=== PATIENT | female | born 2005 | race Two or more races ===

== ENCOUNTER 2024-08-14 11:41 | Emergency (ER) | payer MEDICAID, SELFPAY ==
[2024-08-14 11:50] VITALS: BP 153/95; PULSE 95; RESP 16; TEMP 36.9; O2SAT 97; BMI 40.1
--- NOTE | 2024-08-14 12:04 | XR_ITS ---
Examination: Abdomen sonogram, Limited Date and time of exam: August 14, 2024 1245 hours INDICATIONS: Epigastric pain and vomiting beginning today Technique: Real-time olivarez scale transabdominal sonographic images of the upper abdomen obtained. Findings: Small gallstones Gallbladder wall 0.3 cm Common bile duct 0.3 cm Pancreatic head 2.4 cm Liver 13.3 cm fatty infiltration Normal hepatopedal portal venous flow IVC is obscured by bowel gas IMPRESSION: Cholelithiasis, negative for cholecystitis Normal common bile duct
--- NOTE | 2024-08-14 12:05 | EDNOTE_ITS ---
ED Abdominal Pain RME/HPI General Chief Complaint: Nausea/Vomiting/Diarrhea Stated complaint: Vomiting since 0200, abdominal pain Time seen by provider: 08/14/24 11:45 Arrival date/time: 08/14/24 11:41 This is a case of 18-year-old female with no medical history came in in the emergency room due to abdominal pain mostly on the upper abdominal and epigastric area today associated with nausea vomiting no constipation no diarrhea no fever no chills no blood in stool Source: patient Limitations: no limitations Related Data Previous Rx's ?Medication ?Instructions ?Recorded famotidine 20 mg tablet 20 mg PO BID 30 days #60 tab s 08/14/24 nitrofurantoin 100 mg PO BID 10 days #20 ca ps 08/14/24 monohydrate/macrocrystals 100 mg capsule (Macrobid) ondansetron 4 mg disintegrating 4 mg PO Q8H PRN nausea and 08/14/24 tablet vomiting #10 tabs tramadol 50 mg tablet 50 mg PO Q6H PRN pain #10 ta bs 08/14/24 Allergies Allergy/AdvReac Type Severity Reaction Status Date / Time No Known Drug Allergies Allergy Verified 08/14/24 11:45 Review of Systems Review of Systems Systems Reviewed: All systems reviewed, normal except as documented Constitutional Constitutional: Reports system reviewed and no additional complaints, except as documented, Reports as per HPI, Denies chills and Denies fever(s) ENT Ears, Nose, Mouth, and Throat: Denies dysphagia and Denies odynophagia Cardiovascular Cardiovascular: Reports system reviewed and no additional complaints, except as documented, Reports as per HPI, Denies chest pain and Denies dyspnea Respiratory Respiratory: Reports system reviewed and no additional complaints, except as documented, Reports as per HPI and Denies dyspnea Gastrointestinal Gastrointestinal: Reports system reviewed and no additional complaints, except as documented, Reports as per HPI, Reports abdominal pain, Denies belching, Denies bloating, Denies change in bowel habits, Denies change in stool character, Denies coffee ground emesis, Denies constipation, Denies cramping, Denies diarrhea, Denies dyspepsia, Denies dysphagia, Denies early satiety, Denies excessive flatus, Denies fecal incontinence, Denies heartburn, Denies hematemesis, Denies hematochezia, Denies loose stools, Denies melena, Reports nausea, Denies odynophagia, Denies tenesmus and Reports vomiting Musculoskeletal Musculoskeletal: Reports system reviewed and no additional complaints, except as documented and Reports as per HPI Neurologic Neurologic: Reports system reviewed and no additional complaints, except as documented and Reports as per HPI Past Medical History Social History SMOKING STATUS: Never smoker ED Exam General Limitations: Present no limitations General appearance: Present alert, in no apparent distress and other (Alert oriented x 4 no focal deficit well-hydrated well-nourished not in distress nontoxic looking) Head Head exam: Present atraumatic Eye Eye exam: Present normal appearance, PERRL and EOMI ENT ENT exam: Present normal exam, normal oropharynx and mucous membranes moist Neck Neck exam: Present normal inspection, full ROM and trachea midline; Absent tenderness, meningismus or lymphadenopathy Chest Chest inspection: Present normal inspection and symmetric chest wall rise; Absent tenderness Respiratory Respiratory exam: Present normal lung sounds bilaterally; Absent respiratory distress, wheezes, stridor, accessory muscle use or prolonged expiratory phase Cardiovascular Cardiovascular exam: Present regular rate, normal rhythm and normal heart sounds; Absent bradycardia, tachycardia, irregular rhythm, systolic murmur or diastolic murmur Abdominal Exam Abdominal exam: Present soft, tenderness (Mild tenderness on the right upper quadrant and epigastric area no CVA tenderness) and normal bowel sounds; Absent distention, guarding, rebound, rigidity, diminished bowel sounds, hyperactive bowel sounds, psoas sign, obturator sign, Zepeda's sign, Rovsing's sign or tenderness at McBurney's Point Abdominal tenderness: Present RUQ, epigastrium and mild Extremities Exam Extremities exam: Present normal inspection and full ROM Back Exam Back exam: Present normal inspection and full ROM Neurological Exam Neurological exam: Present alert, oriented X3, CN II-XII intact, normal gait and reflexes normal; Absent motor sensory deficit Psychiatric Psychiatric exam: Present normal affect and normal mood Skin Skin exam: Present warm, dry, intact and normal color Course Quality Measures none Orders Category Date Time Status US gall bladder Stat Exams 08/14/24 12:04 Completed CBC Stat Lab 08/14/24 12:09 Completed Comprehensive Metabolic Panel Stat Lab 08/14/24 12:09 Completed HCG Qualitative,Urine Stat Lab 08/14/24 13:17 Completed Lipase Stat Lab 08/14/24 12:09 Completed Urinalysis Stat Lab 08/14/24 13:17 Completed Famotidine [Pepcid] Med 08/14/24 12:04 Discontinued 40 mg PO X1 ONE HYDROcodone*/APAP 5/325 [Plains 5/325] Med 08/14/24 13:54 Discontinued 1 tab PO X1 ONE Lidocaine 2% Viscous [Xylocaine 2% Viscous] Med 08/14/24 12:04 Discontinued 15 ml PO X1 ONE Ondansetron Odt [Zofran Odt] Med 08/14/24 12:04 Discontinued 4 mg PO X1 ONE mg Hyd/Al Hyd/Vilma Susp [Maalox Susp] Med 08/14/24 12:04 Discontinued 30 ml PO X1 ONE Vital Signs Vital signs: Vital Signs Temperature 98.4 F 08/14/24 11:50 Pulse Rate 95 08/14/24 11:50 Respiratory Rate 16 08/14/24 11:50 Blood Pressure 153/95 H 08/14/24 11:50 Pulse Oximetry (%) 97 08/14/24 11:50 Oxygen Delivery Method Room Air 08/14/24 11:50 Patient is afebrile not tachycardic not tachypneic BP stable not hypoxic oxygen saturation is 97 in room air Abdominal Pain MDM MDM Narrative MDM Narrative:: This is a case of 18-year-old female with no medical history came in in the emergency room due to abdominal pain mostly on the upper abdominal and epigastric area today associated with nausea vomiting no constipation no diarrhea no fever no chills no blood in stool patient is awake alert oriented not in distress nontoxic looking well-hydrated well-nourished lungs sound is clear heart normal rate regular rhythm no murmur abdominal exam is benign nonsurgical no guarding no rebound no rigidity mild tenderness on the epigastric area and right upper quadrant negative psoas negative straight or negative Rovsing's negative Bharat's negative Zepeda sign negative CVA tenderness blood test showed leukocytosis 12,000 no anemia platelets normal kidney liver function is normal no electrolyte imbalance lipase is normal urinalysis showed WBC in the urine suggestive of urinary tract infection ultrasound of the gallbladder pos itive cholelithiasis no cholecystitis patient was given Zofran and GI cocktail which patient condition markedly improved proved at the time of exam no signs and symptoms sepsis or dehydration patient was treated as gastritis initially patient will follow-up with PCP to be referred to general surgeon for cholelithiasis and GI specialist for gastritis and cholelithiasis modified diet keep hydrated worsening symptoms or any emergent concern she was advised to return the emergency room immediately or call 911 Patient was discharged with comfortable condition walking with stable gait. Patient verbalized no further complains explained diagnosis and answered patient question. Patient is comfortable with the proposed management plan including the need to follow up with his/her primary care physician and any specialist if applicable Discussed patient for any urgent condition or worsening sx, He/She needed to go to emergency room immediately or call 911. Patient acknowledge the responsibility to follow up as instructed and to monitor her/his symptoms. For any persistence of the symptoms for more than 3-5 days return precaution advised. Discussed the result of the test and was given printed discharge instruction Patient data External records reviewed:: [facility] previous records Clinical information provided by:: patient Social determinants that could affect healthcare access:: none Patient has the following chronic illnesses:: None How is presenting disease/condition affected by chronic disease/condition?: no chronic disease Evaluation data The following diagnostics were reviewed and interpreted by me:: lab results and radiology exam(s) Lab and/or radiology exams considered but not ordered:: Reviewed Interpretation Summary: Reviewed Medications / Prescriptions Medications or Prescriptions considered but not ordered:: Given Medication administrations:: Medication Administration History Discontinued Medications Hydrocodone Bitart/Acetaminophen (Hydrocodone/Apap 5/325 Tablet) 1 tab PO X1 ONE Stop: 08/14/24 13:55 Last Admin: 08/14/24 14:01 Dose: Not Given Documented By: VIOLET Non-Admin Reason: Patient Refused Al Hydrox/Mg Hydrox/Simethicone (Mg Hyd/Al Hyd/Vilma (Maalox Reg) Susp 30 Ml Udc) 30 ml PO X1 ONE Stop: 08/14/24 12:05 Last Admin: 08/14/24 12:39 Dose: 30 ml Documented By: VIOLET Famotidine (Famotidine 20 Mg Tablet) 40 mg PO X1 ONE Stop: 08/14/24 12:05 Last Admin: 08/14/24 12:39 Dose: 40 mg Documented By: VIOLET Lidocaine HCl (Lidocaine Viscous 2% 15 Ml Udc) 15 ml PO X1 ONE Stop: 08/14/24 12:05 Last Admin: 08/14/24 12:40 Dose: 15 ml Documented By: VIOLET Ondansetron HCl (Ondansetron Odt 4 Mg Tabrap) 4 mg PO X1 ONE; Protocol Stop: 08/14/24 12:05 Last Admin: 08/14/24 12:38 Dose: 4 mg Documented By: MF Given Consultations Consultation(s) initiated? (list below): No Diagnosis Differential diagnosis abdominal pain: abdominal pain and other (Urinary tract infection cholelithiasis gastritis) Most likely diagnosis given after review of the tests above:: Gastritis cholelithiasis urinary tract infection Admission Indicated Admission indicated?: not indicated Explain why admission is indicated or not indicated:: Not indicated Admission Request Was there a request for admission?: No Admission Attestation Admission request attestation: Not indicated Disposition Plan Disposition Plan: Discharge Discharge Attestation Discharge Attestation: The patient and all family members were given an opportunity to ask questions and understood the discharge instructions. Discharge instructions specifically effects, indications for sooner follow up or return to the emergency department, and the expected course of current diagnosis. Patient condition: Stable Discharge Plan Plan Patient Disposition: HOME (Self Care) Patient condition on transfer: Stable Prescriptions/Referrals Prescriptions/Med Rec: New nitrofurantoin monohyd/m-cryst [Macrobid] 100 mg capsule 100 mg PO BID 10 Days Qty: 20 0RF Rx Instructions: must administer with a meal/food tramadol 50 mg tablet 50 mg PO Q6H MDD max 4 tabs per day PRN (Reason: pain) Qty: 10 0RF ondansetron 4 mg tablet,disintegrating 4 mg PO Q8H PRN (Reason: nausea and vomiting) Qty: 10 0RF famotidine 20 mg tablet 20 mg PO BID 30 Days Qty: 60 0RF Referrals: Tennille Harley FNP-C [Primary Care Provider] - In 1 week Problem List Clinical Impression: Abdominal pain, Cholelithiasis, Gastritis, Urinary tract infection Patient/Caregiver Discharge Instructions Education Materials: Abdominal Pain, Treating Gallstones, Understanding Urinary Tract ..., ED Gastritis (Adult) Additional Instructions: Follow-up with your primary care physician in 2 days for reevaluation and to be referred to order dispatcher chief for further evaluation and treatment of cholelithiasis and gastritis and to be referred to a general surgeon for cholelithiasis worsening symptoms recurrence of the symptoms persistence of the symptoms or any emergent concern call 911 or go to the nearest emergency room take your medication as directed avoid skipping of meals avoid spicy food avoid fatty fried high cholesterol foods avoid soda coffee or alcohol take your medication as directed finish the course of antibiotic increase water intake keep hydrated Pedialyte Gatorade for hydration and every bouts of vomiting Print Language: Tamazight Stand Alone Forms: Fidelia Award Info., Patient Portal Info Letter PA/JOINERY SETTER OUT Supervising Physician PA/JOINERY SETTER OUT Supervising Physician: dr ramesh
[2024-08-14 12:21] LABS: Basophils # (Auto) 0.0 Thou/mm3 (0.0-0.2); Basophils % (Auto) 0 % (0-2.5); Eosinophils # (Auto) 0.1 Thou/mm3 (0.0-0.5); Eosinophils % (Auto) 1 % (0-10); Hematocrit 39.9 % (36.0-46.0); Hemoglobin 15.0 g/dL (12.0-16.0); Immature Granulocytes Auto 0.04 Thou/mm3 (0.00-0.00); Lymphocytes # (Auto) 2.2 Thou/mm3 (1.0-4.8); Lymphocytes % (Auto) 19 % (10-50); Mean Corpuscular HGB Conc 37.6 g/dl (31.0-37.0); Mean Corpuscular Hemoglobin 30.7 pg (25.0-35.0); Mean Corpuscular Volume 82 fL (80-100); Monocytes # (Auto) 0.6 Thou/mm3 (0.0-0.8); Monocytes % (Auto) 5 % (0-12); Neutrophils # (Auto) 9.0 Thou/mm3 (1.8-7.7); Neutrophils % (Auto) 75 % (37-80); Nucleated Red Blood Cell # 0.00 Thou/mm3 (0.00-0.00); Nucleated Red Blood Cell % 0 /100 WBC (0); Platelet Count 329 Thou/mm3 (140-440); RDW Standard Deviation 37.0 fL (36.4-46.3); Red Blood Count 4.88 Miln/mm3 (4.00-5.20); White Blood Count 12.0 Thou/mm3 (4.5-11.0)
[2024-08-14 12:38] LABS: Alanine Aminotransferase 52 U/L (10-49); Albumin, Serum 4.9 gm/dL (3.5-5.0); Albumin/Globulin Ratio 1.4 (1.2-2.2); Alkaline Phosphatase 104 U/L (46-116); Anion Gap 8 (7-16); Aspartate Amino Transferase 28 U/L (0-34); BUN/Creatinine Ratio 11 Ratio (12-20); Bilirubin,Total 0.6 mg/dL (0.3-1.2); Blood Urea Nitrogen 9 mg/dL (9-23); Calcium 10.1 mg/dL (8.3-10.6); Calcium (Corrected) 10.1 mg/dL (8.5-10.1); Carbon Dioxide 27.4 mMol/L (20.0-31.0); Chloride 103 mMol/L (98-107); Creatinine (Component) 0.8 mg/dL (0.6-1.3); Estimated Creatinine Clearance 157.7 mL/min (>60); Globulin 3.6 gm/dL (2.3-3.5); Glucose 120 mg/dL (74-106); Lipase 31 U/L (12-53); Osmolality,Calculated 275 (275-295); Potassium 3.9 mMol/L (3.4-5.1); Sodium 138 mMol/L (136-145); Total Protein 8.5 gm/dL (5.7-8.2); eGFR > 60 See Note
[2024-08-14] MEDS: ONDANSETRON ODT 4 MG TABRAP PO (12:38)
[2024-08-14] MEDS: MG HYD/AL HYD/SIME (Maalox Reg) SUSP 30 ML UDC PO (12:39)
[2024-08-14] MEDS: FAMOTIDINE 20 MG TABLET 40 MG PO (12:39)
[2024-08-14] MEDS: LIDOCAINE VISCOUS 2% 15 ML UDC PO (12:40)
[2024-08-14 13:23] LABS: Collection Type, Urine Clean Catch
[2024-08-14 13:35] LABS: Bilirubin,Urine Negative (Negative); Blood,Urine Negative (Negative); Clarity,Urine Clear (Clear/Hazy); Color,Urine Lt-Yellow (Lt Yel-Yel); Glucose, Urine Negative (Negative); Ketones,Urine Negative (Negative); Leukocyte Esterase,Urine Positive (Negative); Nitrite,Urine Negative (Negative); PH,Urine 7.0 (5.0-7.0); Protein,Urine Negative (Neg - Trace); RBC,Urine 1 /hpf (0-3); Specific Gravity,Urine 1.017 (1.001-1.035); Squamous Epithelial Cell,Urine 4 /hpf (0-5); Urobilinogen,Urine Negative mg/dL (0.0-1.0); WBC,Urine 1 /hpf (0-5)
[2024-08-14 13:46] LABS: HCG Qualitative,Urine Negative
[2024-08-14 14:39] VITALS: BP 135/81; PULSE 91; RESP 18; TEMP 36.7; O2SAT 97
== END 2024-08-14 15:59 | disposition home or self-care (01) ==
PROVIDERS: Nurse Practitioner Family; Emergency Provider Emergency Medicine; PCP Nurse Practitioner Family
DX: K29.70 Gastritis, unspecified, without bleeding (principal); K80.20 Calculus of gallbladder without cholecystitis without obstruction; N39.0 Urinary tract infection, site not specified
CPT/HCPCS: 36415; 76705; 80053; 81001; 81025; 83690; 85025; 99283; J3490; Q0162; A9270

== ENCOUNTER 2024-08-26 11:45 | Outpatient (AMB) | payer MEDICAID, SELFPAY ==
--- NOTE | 2024-08-26 08:18 | GSCOFFNT_ITS ---
Vital [facility] - [facility] 08/26/24 11:52 Height 1.75 m Height Method Measured Weight 123.462 kg Weight Measurement Method Standing Scale BMI 40.1 BP 120/84 Blood Pressure Source Automatic Cuff Blood Pressure Location Left Upper Arm Position Sitting Respiration 16 Pulse 90 Pulse Source Monitor Temp 98.5 F Temp Source Temporal Artery Scan Pulse Oximetry (%) 97 Oxygen Delivery Method Room Air Med/Allergies Allergies & Medications Allergies No Known Drug Allergies Allergy (Verified 08/26/24 11:53) Medication Reconciliation famotidine 20 mg tablet 20 mg PO BID 30 days #60 tabs 08/14/24 [Rx Confirmed 08/26/24] ondansetron 4 mg disintegrating tablet 4 mg PO Q8H PRN nausea and vomiting #10 tabs 08/14/24 [Rx Confirmed 08/26/24] tramadol 50 mg tablet 50 mg PO Q6H PRN pain #10 tabs 08/14/24 [Rx Confirmed 08/26/24] MA Intake Visit Data Collection New Patient or Established: Established Patient (seen at [facility] within 3 years) Seen by Clinical Staff ONLY (RN/MA): No Pain Present Currently: No Pain scale:: 0 Pain Scale Used: Cervantes-Fontenot/Numerical Special Needs Babysitter Required: No PCP or OBGYN visit in last 3 months: Yes Hx Now: No Do You Feel Safe at Home: Yes Authorities Contacted: N/A Smoking Status Smoking Status: Never smoker Immunization / Flu Flu Vaccine in the Last 12 Months: No Flu Vaccine Exclusion Criteria: No Exclusion Criteria Past Medical History Social History SMOKING STATUS: Smoking status: Never smoker HPI HPI Narrative 18F referred for symptomatic cholelithiasis. Pt reports she had an episode of severe pain a few weeks ago, it started suddenly at 1am and was 10/10 in the RUQ, not related to eating and without any associated symptoms. Pt does believe she has had similar episodes of pain in the past that self-resolved. She went to ER at the time and was advised she had cholelithiasis but no signs of cho lecystitis PMH: None PSHx: None Meds: Was given tramadol for pain in ER but felt it caused dizziness Allergies: NKDA Social hx: Nonsmoker ROS Review of Systems Systems Reviewed: All systems reviewed, normal except as documented Objective/Exam General General Appearance: alert, cooperative and well groomed Resp Respiratory exam: Absent respiratory distress Abdominal Abdominal exam: Present soft; Absent distention or tenderness Results US reviewed Assessment & Plan Diagnosis / Problem List (1) Symptomatic cholelithiasis: Status: Acute Assessment & Plan: 18F presenting with signs and symptoms of symptomatic cholelithiasis. I explained that surgery is recommended due to the 30% chance of having recurrent symptoms, and enumerated risks including need for conversion to open, bleeding, infection, injury to nearby structures requiring further procedures or major biliary reconstruction which would require transfer to another hospital, as well as postoperative hernia and diarrhea. All questions were answered and pt is agreeable to proceeding Plan: Laparosocpic cholecystectomy, possible open Wed 09/04 Office Procedures GNS Level of Care Nursing/Assessment Patient Status: Established Patient Nursing Assessment/Reassesment: Medication Reconciliation, Update PMH in EMR and Vital Signs Coordination of Care: Complex Care and Chronic Disease 1-5, Consent,records obtained, informed consent, Education Simp Pt/Fam, Results/Orders obtained and Staff clarify orders Established Patient Charge Established Patient Point Assignment: 90 Established Patient Point Charge: EP Level 3 (80-115) Patient Portal Questionaires Social History Tobacco History Smoking Status: Never smoker Domestic Abuse History Do You Feel Safe at Home: Yes Review of Systems Report any current symptoms Only answer those that you have currently: Past Medical History Past Medical History Have you ever been diagnosed with any of the following:
[2024-08-26 11:52] VITALS: BP 120/84; PULSE 90; RESP 16; TEMP 36.9; O2SAT 97; BMI 40.1
== END 2024-08-26 12:02 | disposition home or self-care (01) ==
LOC: HODSRG 11:45
PROVIDERS: PCP Nurse Practitioner Family; Referring Provider Nurse Practitioner Family; Supervising Provider Surgery; Visit Provider Surgery
DX: K80.20 Calculus of gallbladder without cholecystitis without obstruction (principal)
CPT/HCPCS: 99213; G0463

== ENCOUNTER 2024-09-09 13:38 | Outpatient (AMB) | payer MEDICAID, SELFPAY ==
[2024-09-09 13:50] VITALS: BP 114/78; PULSE 87; RESP 16; TEMP 36.8; O2SAT 98; BMI 40.1
--- NOTE | 2024-09-09 13:50 | PD.GSCLVISIT ---
[facility] - [facility] 09/09/24 13:50 Height 1.75 m Height Method Measured Weight 123.037 kg Weight Measurement Method Standing Scale BMI 40.1 BP 114/78 Blood Pressure Source Automatic Cuff Blood Pressure Location Left Upper Arm Position Sitting Respiration 16 Pulse 87 Pulse Source Monitor Temp 98.3 F Temp Source Temporal Artery Scan Pulse Oximetry (%) 98 Oxygen Delivery Method Room Air Med/Allergies Allergies & Medications Allergies No Known Drug Allergies Allergy (Verified 09/09/24 13:51) Medication Reconciliation famotidine 20 mg tablet 20 mg PO BID 30 days #60 tabs 08/14/24 [Rx Confirmed 09/09/24] ondansetron 4 mg disintegrating tablet 4 mg PO Q8H PRN nausea and vomiting #10 tabs 08/14/24 [Rx Confirmed 09/09/24] tramadol 50 mg tablet 50 mg PO Q6H PRN pain #10 tabs 08/14/24 [Rx Confirmed 09/09/24] MA Intake Visit Data Collection New Patient or Established: Established Patient (seen at [facility] within 3 years) Seen by Clinical Staff ONLY (RN/MA): No Pain Present Currently: Yes Pain Location: Abdomen Pain scale:: 3 Pain Scale Used: Cervantes-Fontenot/Numerical Flooring Salesperson Required: No PCP or OBGYN visit in last 3 months: Yes Hx Now: No Do You Feel Safe at Home: Yes Authorities Contacted: N/A Smoking Status Smoking Status: Never smoker Immunization / Flu Flu Vaccine in the Last 12 Months: No Flu Vaccine Exclusion Criteria: No Exclusion Criteria Past Medical History Social History SMOKING STATUS: Smoking status: Never smoker HPI HPI Narrative 18F here for follow up of cholelithiasis. I had hoped to schedule her surgery for last week but pt states she has had insurance issues related to moving and she spoke to her carrier today who said the necessary changes should be made within 7 days. Pt states she continues to have episodes of RUQ pain but she is managing it well with tylenol ROS Review of Systems Systems Reviewed: All systems reviewed, normal except as documented Objective/Exam General General Appearance: alert, cooperative and well groomed Resp Respiratory exam: Absent respiratory distress Assessment & Plan Diagnosis / Problem List (1) Symptomatic cholelithiasis: Status: Acute Assessment & Plan: 18F presenting with signs and symptoms of symptomatic cholelithiasis. I explained that surgery is recommended due to the 30% chance of having recurrent symptoms, and enumerated risks including need for conversion to open, bleeding, infection, injury to nearby structures requiring further procedures or major biliary reconstruction which would require transfer to another hospital, as well as postoperative hernia and diarrhea. All questions were answered and pt is agreeable to proceeding Plan: Laparoscopic cholecystectomy, possible open Wed 09/25 Office Procedures GNS Level of Care Nursing/Assessment Patient Status: Established Patient Nursing Assessment/Reassesment: Medication Reconciliation, Update PMH in EMR and Vital Signs Coordination of Care: Complex Care and Chronic Disease 1-5, Consent,records obtained, informed consent, Education Simp Pt/Fam, Results/Orders obtained and Staff clarify orders Established Patient Charge Established Patient Point Assignment: 90 Established Patient Point Charge: EP Level 3 (80-115) Patient Portal Questionaires Social History Tobacco History Smoking Status: Never smoker Domestic Abuse History Do You Feel Safe at Home: Yes Review of Systems Report any current symptoms Only answer those that you have currently: Past Medical History Past Medical History Have you ever been diagnosed with any of the following:
== END 2024-09-09 13:59 | disposition home or self-care (01) ==
LOC: HODSRG 13:38
PROVIDERS: PCP Nurse Practitioner Family; Referring Provider Nurse Practitioner Family; Supervising Provider Surgery; Visit Provider Surgery
DX: K80.20 Calculus of gallbladder without cholecystitis without obstruction (principal)
CPT/HCPCS: 99213; G0463

== ENCOUNTER 2024-09-25 08:10 | Day surgery (SDC) | payer MEDICAID, SELFPAY ==
[2024-09-23 12:24] VITALS: BMI 43.0
[2024-09-23 13:20] LABS: Basophils # (Auto) 0.0 Thou/mm3 (0.0-0.2); Basophils % (Auto) 1 % (0-2.5); Eosinophils # (Auto) 0.2 Thou/mm3 (0.0-0.5); Eosinophils % (Auto) 2 % (0-10); Hematocrit 37.1 % (36.0-46.0); Hemoglobin 13.2 g/dL (12.0-16.0); Immature Granulocytes Auto 0.03 Thou/mm3 (0.00-0.00); Lymphocytes # (Auto) 3.2 Thou/mm3 (1.0-4.8); Lymphocytes % (Auto) 39 % (10-50); Mean Corpuscular HGB Conc 35.6 g/dl (31.0-37.0); Mean Corpuscular Hemoglobin 30.6 pg (25.0-35.0); Mean Corpuscular Volume 86 fL (80-100); Monocytes # (Auto) 0.5 Thou/mm3 (0.0-0.8); Monocytes % (Auto) 6 % (0-12); Neutrophils # (Auto) 4.4 Thou/mm3 (1.8-7.7); Neutrophils % (Auto) 53 % (37-80); Nucleated Red Blood Cell # 0.00 Thou/mm3 (0.00-0.00); Nucleated Red Blood Cell % 0 /100 WBC (0); Platelet Count 300 Thou/mm3 (140-440); RDW Standard Deviation 39.1 fL (36.4-46.3); Red Blood Count 4.32 Miln/mm3 (4.00-5.20); White Blood Count 8.3 Thou/mm3 (3.6-11.0)
[2024-09-23 13:27] LABS: INR 1.0 (0.9-1.3); Partial Thromboplastin Time 26.4 Seconds (22.0-36.0); Prothrombin Time 10.9 Seconds (9.0-12.2)
[2024-09-23 13:28] LABS: Anion Gap 8 (7-16); BUN/Creatinine Ratio 16 Ratio (12-20); Blood Urea Nitrogen 11 mg/dL (9-23); Calcium 9.7 mg/dL (8.3-10.6); Carbon Dioxide 25.8 mMol/L (20.0-31.0); Chloride 109 mMol/L (98-107); Creatinine (Component) 0.7 mg/dL (0.6-1.3); Estimated Creatinine Clearance 174.2 mL/min (>60); Glucose 107 mg/dL (74-106); Osmolality,Calculated 284 (275-295); Potassium 3.6 mMol/L (3.4-5.1); Sodium 143 mMol/L (136-145); eGFR > 60 See Note
[2024-09-23 13:48] LABS: HCG,Qualitative Serum Negative
[2024-09-25] VITALS (11 sets, daily range): BP systolic 125–153; BP diastolic 79–101; PULSE 74–91; RESP 14–20; TEMP 36.3–36.4; O2SAT 97–100; BMI 42.5
--- NOTE | 2024-09-25 08:25 | CHAP ---
Prayed with patient before her procedure.
--- NOTE | 2024-09-25 11:24 | ESOP_ITS ---
Date of Procedure 09/25/24 Pre Op Diagnosis Symptomatic cholelithiasis Post Op Diagnosis Same Procedure Laparoscopic cholecystectomy Findings Normal-appearing gallbladder Procedure Description After discussion of risks and benefits, patient was brought to the operating room, SCDs were placed and general anesthesia was induced. She received preoperative antibiotics and was prepped and draped in the usual sterile fashion. After timeout a supraumbilical incision was made with a #15 blade and the skin was elevated with towel clamps. A Veress needle was placed through the incision, however it did not reach the peritoneum. I instead use a long Veress needle but again it did not reach the peritoneum so I instead made an incision in the left upper quadrant approximately 2 fingerbreadths inferior to the costal margin. Again the skin was elevated with towel clamps and the long Veress needle was placed through this new incision. Proper positioning was confirmed with a drop test and the abdomen was then insufflated to 15 mmHg at which point the Veress needle was exchanged for a 5 mm camera using a Visiport technique. There were no signs of injury from the point of entry. Four additional ports were placed under direct vision, one 5mm at the supraumbilical region, one 12 mm at the epigastrium, one 5 mm right subcostal and one 5 mm right anterior axillary line. Patient was placed in reverse Trendelenburg. The fundus of the gallbladder was grasped and retracted cephalad and the infundibulum was grasped and retracted laterally. The critical view of safety was achieved using blunt dissection and the cystic duct and cystic artery were clipped and transected in the usual fashion. The gallbladder was removed from the gallbladder bed using electrocautery. Hemostasis of the gallbladder bed was achieved with electrocautery and reinforced with Surgicel powder. The specimen was removed in an Endo Catch bag via the epigastric port and the epigastric fascia was closed with a 0-Vicryl suture using a Vinayak-Paige. Pneumoperitoneum was released and ports were removed under direct vision. Incisions were irrigated and i nfiltrated with half percent Marcaine for a total of 30 cc. Incisions were closed with 4 Monocryl and reinforced with Dermabond. Patient was extubated and brought to PACU in stable condition Pathology / specimen Other (Gallbladder) Estimated Blood Loss 25 Surgeon Patsy Jeronimo MD Surgical Staff Operation Date: 09/25/24 10:45 Case Staff ASSISTANT FIELD HOCKEY COACH: Tommy Anderson custodial laborer: Rosa Carroll
--- NOTE | 2024-09-25 11:26 | ESDS_ITS ---
Planned Discharge Date 09/25/24 DS: Providers Provider Primary care physician: Physician No Primary/Family Attending Provider on Admission: Patsy Jeronimo MD Attending Provider on DC: Patsy Jeronimo MD Discharging Provider: Patsy Jeronimo MD Diagnosis Discharge Diagnosis (1) Symptomatic cholelithiasis: Status: Acute Problem List Completed Was Problem List Reviewed/Reconciled?: Yes Exam Vital Signs Temp Pulse Resp BP Pulse Ox 97.3 F 79 18 125/83 98 09/25/24 08:39 09/25/24 08:39 09/25/24 08:39 09/25/24 08:39 09/25/24 08:39 Discharge Plan Plan Patient Disposition: HOME (Self Care) Prescriptions/Referrals Prescriptions/Med Rec: New oxycodone-acetaminophen [Percocet] 5-325 mg tablet 1 tab PO Q4H MDD 6 tabs PRN (Reason: pain) Qty: 10 0RF Rx Instructions: Take 1 tablet as needed every 4-6 hours for moderate to severe pain No Action famotidine 20 mg tablet 20 mg PO BID Patient Comments: TAKE 1 TABLET BY MOUTH TWICE DAILY Referrals: Patsy Jeronimo MD [Physician] - (You will receive a phone call to confirm a follow-up appointment with me in 2 weeks) No Primary/Family,Physician [Primary Care Provider] - Patient/Caregiver Discharge Instructions Other Discharge Activity Instructions:: Avoid lifting objects greater than 10 pounds for 6 weeks You may resume showering in 2 days, on 09/27 It is okay to get incisions wet in the shower, pat them dry after Avoid bathing or swimming for 2 weeks During the surgery we fill your abdomen with air in order to see the structures. Some of this air may linger and cause pain that is referred to the shoulder as well as pain with deep breaths. This will get better with time. Being out of bed and walking will help the air to absorb faster You may take ibuprofen as needed in between doses of Percocet or instead of Percocet for mild to moderate pain If you develop worsening pain, nausea/vomiting, fever or signs of jaundice please seek care in ER Education Materials: Cholecystectomy Laparoscopic Dc, Preventing Surgical Site Infections Print Language: Swedish Stand Alone Forms: Fidelia Award Info., Patient Portal Info Letter Discharge Order Discharge Orders: Discharge (Routine); Ordered 09/25/24 Ordered By: Patsy Jeronimo Results Results: Laboratory Laboratory results: results reviewed Results: Imaging US - abdomen: report reviewed PROCEDURES: Procedure Date 09/25/24 Procedures Laparoscopic cholecystectomy
--- NOTE | 2024-09-25 11:38 | SUR.PHASEI ---
pt received from OR in recovery bay 8. pt asleep but responds to voice, breathing unlabored on oxymask 8l. v/s stable. pt dressing dermabond x4 cdi. report received from Briseida VILLASEÑOR and Yrn DEL RIO.
[2024-09-25] MEDS: fentaNYL CIT INJ 50 mCg/ML AMP 2ML IVP ×2 (12:02→13:03)
[2024-09-25] MEDS: ACETAMINOPHEN IVPB 1,000 MG/100 ML VIAL 250 MG IV (12:03)
[2024-09-25] MEDS: ONDANSETRON INJ 2 MG/ML INJ 2 ML 4 MG IVP (12:07)
--- NOTE | 2024-09-25 13:45 | SUR.PHASEII ---
pt awake and alert, breathing unlabored on room air. v/s stable. pt dressing to abd dermabond x4 cdi. pt able to ambulate to wheelchair with steady gait. d/c instructions given with mother Eboni, all questions answered. pt d/c via wheelchair with all belongings.
== END 2024-09-25 13:45 | disposition home or self-care (01) ==
PROVIDERS: Referring Provider Surgery; Visit Provider Surgery
PROC: 0FT44ZZ Resection of Gallbladder, Percutaneous Endoscopic Approach (ICD-10-PCS; CPT 47562; principal; 2024-09-25 10:30)
DX: K80.10 Calculus of gallbladder with chronic cholecystitis without obstruction (principal)
CPT/HCPCS: 47562; 36415; 80048; 84703; 85025; 85610; 85730; A4217; A4649; J0131; J0694; J1100; J1885; J2250; J2405; J2704; J3010; J3490; A9270

== ENCOUNTER 2024-10-10 10:43 | Outpatient (AMB) | payer MEDICAID, SELFPAY ==
[2024-10-10 11:21] VITALS: BP 124/84; PULSE 89; RESP 19; TEMP 36.7; O2SAT 98; BMI 41.3
--- NOTE | 2024-10-10 11:21 | GSCOFFNT_ITS ---
[facility] - [facility] 10/10/24 11:21 Height 1.7 m Height Method Measured Weight 119.55 kg Weight Measurement Method Standing Scale BMI 41.3 BP 124/84 Blood Pressure Source Automatic Cuff Blood Pressure Location Left Upper Arm Position Sitting Respiration 19 Pulse 89 Pulse Source Monitor Temp 98.1 F Temp Source Temporal Artery Scan Pulse Oximetry (%) 98 Oxygen Delivery Method Room Air Med/Allergies Allergies & Medications Allergies No Known Drug Allergies Allergy (Verified 10/10/24 11:22) Medication Reconciliation famotidine 20 mg tablet 20 mg PO BID 09/23/24 [History Confirmed 10/10/24] oxycodone-acetaminophen 5 mg-325 mg tablet (Percocet) 1 tab PO Q4H PRN pain #10 tabs 09/25/24 [Rx Confirmed 10/10/24] docusate sodium 100 mg capsule (Colace) 100 mg PO QDAY PRN constipation #30 caps 09/27/24 [Rx Confirmed 10/10/24] ibuprofen 800 mg tablet 800 mg PO Q6H PRN pain #30 tabs 09/27/24 [Rx Confirmed 10/10/24] oxycodone-acetaminophen 10 mg-325 mg tablet (Percocet) 1 tab PO Q6H PRN pain #20 tabs 09/27/24 [Rx Confirmed 10/10/24] MA Intake Visit Data Collection New Patient or Established: Established Patient (seen at [facility] within 3 years) Seen by Clinical Staff ONLY (RN/MA): No Pain Present Currently: No Pain Scale Used: Cervantes-Fontenot/Numerical Legal Support Manager Required: No PCP or OBGYN visit in last 3 months: Yes Hx Now: No Do You Feel Safe at Home: Yes Authorities Contacted: N/A Smoking Status Smoking Status: Never smoker Immunization / Flu Flu Vaccine in the Last 12 Months: Yes Flu Vaccine Exclusion Criteria: Already Received Past Medical History Past Medical History NEUROLOGIC: Negative Neurological Disorders or Seizures CARDIAC: Negative Cardiac Disorders or Congestive Heart Failure RESPIRATORY: Negative Chronic Obstructive Pulmonary Disease (COPD) GASTROINTESTINAL: Positive Gastrointestinal Disorders, Gall Bladder Disease and Obesity; Negative Hepatitis GENITOURINARY: Negative Genitourinary Disorders or Renal Disease REPRODUCTIVE: Negative Previous Pregnancies ENDOCRINE: Negative Endocrine Disorders, Diabetes Mellitus Type 1 or Diabetes Mellitus Type 2 HEMATOLOGIC: Negative Anemia OTHER HISTORY: Negative Hospitalization, Autoimmune Disease, Shingles, Blood Transfusions, Blood Transfusion Reaction, Anesthesia Reactions or Cancer Family History FAMILY HISTORY: Positive Family Cancer and Family Surgery; Negative Family Psychiatric Problems, Family Respiratory Disorders, Family Cardiac Disorders, Family Gastrointestinal Problems or Family Anesthesia Reaction Social History SMOKING STATUS: Smoking status: Never smoker ALCOHOL: Alcohol Intake: Current HOUSING: Housing: House HPI HPI Narrative 19F s/p lap sushant 09/25/24 here for planned follow up. Pt reports feeling well overall, she had significant pain at first especially with deep breaths but this has since improved. She denies any nausea/fever/diarrhea, is eating well and having regular bowel function ROS Review of Systems Systems Reviewed: All systems reviewed, normal except as documented Objective/Exam General General Appearance: alert, cooperative and well groomed Resp Respiratory exam: Absent respiratory distress Abdominal Abdominal exam: Present soft and incision (c/d/i, no erythema, no fluctuance or tenderness); Absent distention or tenderness Results Pathology of gallbladder reviewed Assessment & Plan Diagnosis / Problem List (1) Symptomatic cholelithiasis: Status: Acute Assessment & Plan: 19F s/p lap sushant 09/25/24 here for planned follow up, recovering well Plan: Follow up as needed Office Procedures GNS Level of Care Nursing/Assessment Patient Status: Established Patient Nursing Assessment/Reassesment: Medication Reconciliation, Orthostatic Vitals, Update PMH in EMR and Vital Signs Coordination of Care: Complex Care and Chronic Disease 1-5, Consent,records obtained, informed consent, Education Simp Pt/Fam, Results/Orders obtained and Staff clarify orders Established Patient Charge Established Patient Point Assignment: 100 Established Patient Point Charge: EP Level 3 (80-115) Patient Portal Questionaires Social History Living Situation History Housing: House Tobacco History Smoking Status: Never smoker Alcohol History Alcohol Intake: Current Domestic Abuse History Do You Feel Safe at Home: Yes Review of Systems Report any current symptoms Only answer those that you have currently: Past Medical History Past Medical History Have you ever been diagnosed with any of the following: Neurological Problems Seizures: No Cardiology Problems Congestive Heart Failure: No Respiratory Problems Chronic Obstructive Pulmonary Disease (COPD): No Stomache/Intestinal Problems Hepatitis: No Gall Bladder Disease: Yes Obesity: Yes Genital/Urinary Problems Renal Disease: No Reproductive Problems Previous Pregnancies: No Endocrine Problems Diabetes Mellitus Type 1: No Diabetes Mellitus Type 2: No Blood Problems Anemia: No Other Problems Hospitalization: No Autoimmune Disease: No Shingles: No Blood Transfusions: No Blood Transfusion Reaction: No Anesthesia Reactions: No Cancer: No
== END 2024-10-10 11:29 | disposition home or self-care (01) ==
LOC: HODSRG 10:43
PROVIDERS: Supervising Provider Surgery; Visit Provider Surgery
DX: Z48.815 Encounter for surgical aftercare following surgery on the digestive system (principal); E66.9 Obesity, unspecified; Z68.41 Body mass index [BMI] 40.0-44.9, adult
CPT/HCPCS: 99213; G0463

== ENCOUNTER 2024-10-17 10:51 | Outpatient (AMB) | payer MEDICAID, SELFPAY ==
[2024-10-17 10:58] VITALS: BP 119/78; PULSE 84; RESP 19; TEMP 36.7; O2SAT 97; BMI 42.0
--- NOTE | 2024-10-17 10:58 | PD.GSCLVISIT ---
Vital Signs - [facility] 10/17/24 10:58 Height 1.7 m Height Method Stated Weight 121.563 kg Weight Measurement Method Standing Scale BMI 42.0 BP 119/78 Blood Pressure Source Automatic Cuff Blood Pressure Location Left Upper Arm Position Sitting Respiration 19 Pulse 84 Pulse Source Monitor Temp 98.1 F Temp Source Temporal Artery Scan Pulse Oximetry (%) 97 Oxygen Delivery Method Room Air Med/Allergies Allergies & Medications Allergies No Known Drug Allergies Allergy (Verified 10/17/24 10:58) Medication Reconciliation famotidine 20 mg tablet 20 mg PO BID 09/23/24 [History Confirmed 10/17/24] oxycodone-acetaminophen 5 mg-325 mg tablet (Percocet) 1 tab PO Q4H PRN pain #10 tabs 09/25/24 [Rx Confirmed 10/17/24] docusate sodium 100 mg capsule (Colace) 100 mg PO QDAY PRN constipation #30 caps 09/27/24 [Rx Confirmed 10/17/24] ibuprofen 800 mg tablet 800 mg PO Q6H PRN pain #30 tabs 09/27/24 [Rx Confirmed 10/17/24] oxycodone-acetaminophen 10 mg-325 mg tablet (Percocet) 1 tab PO Q6H PRN pain #20 tabs 09/27/24 [Rx Confirmed 10/17/24] MA Intake Visit Data Collection New Patient or Established: Established Patient (seen at [facility] within 3 years) Seen by Clinical Staff ONLY (RN/MA): No Reason for Visit:: INCISION OPEN Pain Present Currently: No Pain Scale Used: Cervantes-Fontenot/Numerical Interrelated Special Education Teacher Required: No PCP or OBGYN visit in last 3 months: Yes Hx Now: No Do You Feel Safe at Home: Yes Authorities Contacted: N/A Smoking Status Smoking Status: Never smoker Immunization / Flu Flu Vaccine in the Last 12 Months: Yes Flu Vaccine Exclusion Criteria: Already Received Past Medical History Past Medical History NEUROLOGIC: Negative Neurological Disorders or Seizures CARDIAC: Negative Cardiac Disorders or Congestive Heart Failure RESPIRATORY: Negative Chronic Obstructive Pulmonary Disease (COPD) GASTROINTESTINAL: Positive Gastrointestinal Disorders, Gall Bladder Disease and Obesity; Negative Hepatitis GENITOURINARY: Negative Genitourinary Disorders or Renal Disease REPRODUCTIVE: Negative Previous Pregnancies ENDOCRINE: Negative Endocrine Disorders, Diabetes Mellitus Type 1 or Diabetes Mellitus Type 2 HEMATOLOGIC: Negative Anemia OTHER HISTORY: Negative Hospitalization, Autoimmune Disease, Shingles, Blood Transfusions, Blood Transfusion Reaction, Anesthesia Reactions or Cancer Family History FAMILY HISTORY: Positive Family Cancer and Family Surgery; Negative Family Psychiatric Problems, Family Respiratory Disorders, Family Cardiac Disorders, Family Gastrointestinal Problems or Family Anesthesia Reaction Social History SMOKING STATUS: Smoking status: Never smoker ALCOHOL: Alcohol Intake: Current HOUSING: Housing: House HPI HPI Narrative 19F s/p lap sushant 09/25/24 here for follow up due to drainage from R lower abdominal incision. Pt states the day after her last visit she had drainage from the area, as well as feeling fatigued. She denies any fever/nausea, is eating well and having regular BMs. She is not using any gauze to cover the area but is keeping it clean and dry. Her PCP took a culture and prescribed her PO antibiotics which she is still taking ROS Review of Systems Systems Reviewed: All systems reviewed, normal except as documented Objective/Exam General General Appearance: alert, cooperative and well groomed Resp Respiratory exam: Absent respiratory distress Abdominal Abdominal exam: Present soft and incision (RLQ incision with superficial dehiscence, minimal surrounding erythema, no fluctuance or tenderness, no active drainage); Absent distention or tenderness Results Pathology of gallbladder reviewed Assessment & Plan Diagnosis / Problem List (1) Symptomatic cholelithiasis: Status: Acute Assessment & Plan: 19F s/p lap sushant 09/25/24 here with drainage from RLQ incision, no signs of active infection but on PO abx. I applied silver nitrate to the area to discourage further drainage, will follow up on Mon Orders: Orders Silver nitrate applicator topical stick Today Office Procedures GNS Level of Care Nursing/Assessment Patient Status: Established Patient Nursing Assessment/Reassesment: Medication Reconciliation, Update PMH in EMR and Vital Signs Coordination of Care: Complex Care and Chronic Disease 1-5, Consent,records obtained, informed consent, Education Simp Pt/Fam, Results/Orders obtained and Staff clarify orders Established Patient Charge Established Patient Point Assignment: 90 Established Patient Point Charge: EP Level 3 (80-115) Surgical Proc/IM SQ injection Minor Surgical Procedure: Yes (SILVER NITRATE) Medication Given Medication Given Medication Given: Yes Documented Dose Given: 2 Route: Infiitration Office Meds silver nitrate applicators 75 %-25 % topical stick Performing Provider: Patsy Jeronimo MD Performing Location: [facility] Administered by: Patsy Jeronimo MD on 10/17/24 11:04 Dose Route Admin Location Dispensed Lot Number Expiration Date Package NDC NDC Pedal Assembler 2 ea topical 2 ea [id number] 08/23/26 [id number] [employer] Patient Portal Questionaires Social History Living Situation History Housing: House Tobacco History Smoking Status: Never smoker Alcohol History Alcohol Intake: Current Domestic Abuse History Do You Feel Safe at Home: Yes Review of Systems Report any current symptoms Only answer those that you have currently: Past Medical History Past Medical History Have you ever been diagnosed with any of the following: Neurological Problems Seizures: No Cardiology Problems Congestive Heart Failure: No Respiratory Problems Chronic Obstructive Pulmonary Disease (COPD): No Stomache/Intestinal Problems Hepatitis: No Gall Bladder Disease: Yes Obesity: Yes Genital/Urinary Problems Renal Disease: No Reproductive Problems Previous Pregnancies: No Endocrine Problems Diabetes Mellitus Type 1: No Diabetes Mellitus Type 2: No Blood Problems Anemia: No Other Problems Hospitalization: No Autoimmune Disease: No Shingles: No Blood Transfusions: No Blood Transfusion Reaction: No Anesthesia Reactions: No Cancer: No
== END 2024-10-17 11:10 | disposition home or self-care (01) ==
LOC: HODSRG 10:51
PROVIDERS: Supervising Provider Surgery; Visit Provider Surgery
DX: T81.31XA Disruption of external operation (surgical) wound, not elsewhere classified, initial encounter (principal); Y84.8 Other medical procedures as the cause of abnormal reaction of the patient, or of later complication, without mention of misadventure at the time of the procedure; E66.9 Obesity, unspecified; Z68.41 Body mass index [BMI] 40.0-44.9, adult
CPT/HCPCS: 17250; 99213; A9270; G0463

== ENCOUNTER 2024-10-21 13:23 | Outpatient (AMB) | payer MEDICAID, SELFPAY ==
--- NOTE | 2024-10-21 13:36 | GSCOFFNT_ITS ---
Vital Signs - [facility] 10/21/24 13:38 Height 1.7 m Height Method Measured Weight 120.769 kg Weight Measurement Method Standing Scale BMI 41.8 BP 118/79 Blood Pressure Source Automatic Cuff Blood Pressure Location Left Upper Arm Position Sitting Respiration 18 Pulse 97 Pulse Source Monitor Temp 98.0 F Temp Source Temporal Artery Scan Pulse Oximetry (%) 96 Oxygen Delivery Method Room Air Med/Allergies Allergies & Medications Allergies No Known Drug Allergies Allergy (Verified 10/21/24 13:40) Medication Reconciliation famotidine 20 mg tablet 20 mg PO BID 09/23/24 [History Confirmed 10/21/24] oxycodone-acetaminophen 5 mg-325 mg tablet (Percocet) 1 tab PO Q4H PRN pain #10 tabs 09/25/24 [Rx Confirmed 10/21/24] docusate sodium 100 mg capsule (Colace) 100 mg PO QDAY PRN constipation #30 caps 09/27/24 [Rx Confirmed 10/21/24] ibuprofen 800 mg tablet 800 mg PO Q6H PRN pain #30 tabs 09/27/24 [Rx Confirmed 10/21/24] oxycodone-acetaminophen 10 mg-325 mg tablet (Percocet) 1 tab PO Q6H PRN pain #20 tabs 09/27/24 [Rx Confirmed 10/21/24] MA Intake Visit Data Collection New Patient or Established: Established Patient (seen at [facility] within 3 years) Seen by Clinical Staff ONLY (RN/MA): No Reason for Visit:: INCISION OPEN FOLLOW UP Pain Present Currently: No Pain Scale Used: Cervantes-Fontenot/Numerical Search Engine Marketing Strategist Required: No PCP or OBGYN visit in last 3 months: Yes Hx Now: No Do You Feel Safe at Home: Yes Authorities Contacted: N/A Smoking Status Smoking Status: Never smoker Immunization / Flu Flu Vaccine in the Last 12 Months: Yes Flu Vaccine Exclusion Criteria: Already Received Past Medical History Past Medical History NEUROLOGIC: Negative Neurological Disorders or Seizures CARDIAC: Negative Cardiac Disorders or Congestive Heart Failure RESPIRATORY: Negative Chronic Obstructive Pulmonary Disease (COPD) GASTROINTESTINAL: Positive Gastrointestinal Disorders, Gall Bladder Disease and Obesity; Negative Hepatitis GENITOURINARY: Negative Genitourinary Disorders or Renal Disease REPRODUCTIVE: Negative Previous Pregnancies ENDOCRINE: Negative Endocrine Disorders, Diabetes Mellitus Type 1 or Diabetes Mellitus Type 2 HEMATOLOGIC: Negative Anemia OTHER HISTORY: Negative Hospitalization, Autoimmune Disease, Shingles, Blood Transfusions, Blood Transfusion Reaction, Anesthesia Reactions or Cancer Family History FAMILY HISTORY: Positive Family Cancer and Family Surgery; Negative Family Psychiatric Problems, Family Respiratory Disorders, Family Cardiac Disorders, Family Gastrointestinal Problems or Family Anesthesia Reaction Social History SMOKING STATUS: Smoking status: Never smoker ALCOHOL: Alcohol Intake: Current HOUSING: Housing: House HPI HPI Narrative 19F s/p lap sushant 09/25/24 here for follow up due to drainage from R lower abdominal incision. Pt states she is not having any more drainage, she did have a pain down her entire R side two days ago but it self resolved and she is f eeling well with no other complaints. She is almost done with her PO abx and is awaiting the results of her wound culture ROS Review of Systems Systems Reviewed: All systems reviewed, normal except as documented Objective/Exam General General Appearance: alert, cooperative and well groomed Resp Respiratory exam: Absent respiratory distress Abdominal Abdominal exam: Present soft and incision (RLQ incision with superficial dehiscence, no erythema, no fluctuance or tenderness); Absent distention or tenderness Assessment & Plan Diagnosis / Problem List (1) Symptomatic cholelithiasis: Status: Acute Assessment & Plan: 19F s/p lap sushant 09/25/24 here for follow up due to drainage from R lower abdominal incision which has since resolved Plan: Follow up as needed Office Procedures GNS Level of Care Nursing/Assessment Patient Status: Established Patient Nursing Assessment/Reassesment: Medication Reconciliation, Update PMH in EMR and Vital Signs Coordination of Care: Complex Care and Chronic Disease 1-5, Consent,records obtained, informed consent, Education Simp Pt/Fam, Results/Orders obtained and Staff clarify orders Established Patient Charge Established Patient Point Assignment: 90 Established Patient Point Charge: EP Level 3 (80-115) Patient Portal Questionaires Social History Living Situation History Housing: House Tobacco History Smoking Status: Never smoker Alcohol History Alcohol Intake: Current Domestic Abuse History Do You Feel Safe at Home: Yes Review of Systems Report any current symptoms Only answer those that you have currently: Past Medical History Past Medical History Have you ever been diagnosed with any of the following: Neurological Problems Seizures: No Cardiology Problems Congestive Heart Failure: No Respiratory Problems Chronic Obstructive Pulmonary Disease (COPD): No Stomache/Intestinal Problems Hepatitis: No Gall Bladder Disease: Yes Obesity: Yes Genital/Urinary Problems Renal Disease: No Reproductive Problems Previous Pregnancies: No Endocrine Problems Diabetes Mellitus Type 1: No Diabetes Mellitus Type 2: No Blood Problems Anemia: No Other Problems Hospitalization: No Autoimmune Disease: No Shingles: No Blood Transfusions: No Blood Transfusion Reaction: No Anesthesia Reactions: No Cancer: No
[2024-10-21 13:38] VITALS: BP 118/79; PULSE 97; RESP 18; TEMP 36.7; O2SAT 96; BMI 41.8
== END 2024-10-21 14:23 | disposition home or self-care (01) ==
LOC: HODSRG 13:23
PROVIDERS: Supervising Provider Surgery; Visit Provider Surgery
DX: Z48.815 Encounter for surgical aftercare following surgery on the digestive system (principal); E66.9 Obesity, unspecified; Z68.41 Body mass index [BMI] 40.0-44.9, adult
CPT/HCPCS: 99213; G0463

== ENCOUNTER → 2024-11-05 | Outpatient (CLI) | payer MEDICAID, SELFPAY | END | disposition home or self-care (01) | PROVIDERS: PCP Nurse Practitioner Family; Referring Provider Nurse Practitioner Family; Visit Provider Nurse Practitioner Family | DX: Z01.83 Encounter for blood typing (principal) | CPT/HCPCS: 36415; 86900; 86901 ==